=== PATIENT | female | born 1990 | race Caucasian/White ===

== ENCOUNTER 2017-09-07 13:15 | Emergency (ER) | payer BC ==
[2017-09-07] MEDS ORDERED: ONDANSETRON HCL INJ/PF 4 MG/2 ML SDV IV ONE (14:05)
[2017-09-07] MEDS ORDERED: NORMAL SALINE 1000 ML 1,000 ML IV ONE (14:05)
[2017-09-07] MEDS ORDERED: KETOROLAC TROMETHAMINE INJ/PF 30 MG/1 ML SDV IV ONE (14:05)
--- NOTE | 2017-09-07 14:06 | ER Document Report ---
ED Medical Screen (RME) - General Chief Complaint: Abdominal Pain Stated Complaint: ABDOMINAL PAIN Time Seen by Provider: 09/07/17 14:04 Notes: Patient has had 4 days of left lower quadrant abdominal pain. She states she had a CT scan done yesterday which was unremarkable. She has had no problems with urine or stool. No problems with appetite. She states that she had an ultrasound done in the office by her CHRONOMETER ADJUSTER yesterday that showed ovarian cyst. She states she was told by the OB provider that this could possibly be a torsion. She states that she comes back to the hospital because she keeps receiving pain medications at the clinic and she does not want any more pain medication but wants to know why she has the pain. TRAVEL OUTSIDE OF THE [place] IN LAST 30 DAYS: No - Related Data Allergies/Adverse Reactions: No Known Allergies Allergy (Verified 09/07/17 13:16) Home Medications: hydrocodone Past Medical History - Social History Chew tobacco use (# tins/day): No Frequency of alcohol use: None Drug Abuse: None Renal/ Medical History: Denies: Hx Peritoneal Dialysis Past Surgical History: Reports: Hx Oral Surgery - Immunizations Immunizations up to date: Yes Hx Diphtheria, Pertussis, Tetanus Vaccination: Yes - unknown Physical Exam - Vital signs Vitals: Temp Pulse Resp BP Pulse Ox 97.6 F 78 16 106/67 99 09/07/17 13:21 09/07/17 13:21 09/07/17 13:21 09/07/17 13:21 09/07/17 13:21 Course - Vital Signs Vital signs: Temp Pulse Resp BP Pulse Ox 97.6 F 78 16 106/67 99 09/07/17 13:21 09/07/17 13:21 09/07/17 13:21 09/07/17 13:21 09/07/17 13:21 Doctor's Discharge - Discharge Referrals: MYRNA SHORT NP [Primary Care Provider] - Follow up as needed
[2017-09-07 14:30] LABS: ABSOLUTE BASOPHILS # (AUTO) 0.1 10^3/uL (0.0-0.2); ABSOLUTE EOSINOPHILS # (AUTO) 0.1 10^3/uL (0.0-0.6); ABSOLUTE LYMPHOCYTES (AUTO) 1.9 10^3/uL (0.5-4.7); ABSOLUTE NEUT (AUTO) 7.8 10^3/uL (1.7-8.2); BASOPHILS % (AUTO) 0.5 % (0-2); HEMATOCRIT 41.2 % (36.0-47.0); HEMOGLOBIN 14.2 g/dL (12.0-15.5); LYMPHOCYTES % (AUTO) 17.6 % (13-45); MEAN CORPUSCULAR HEMOGLOBIN 29.4 pg (27.0-33.4); MEAN CORPUSCULAR HGB CONC 34.4 g/dL (32.0-36.0); MEAN CORPUSCULAR VOLUME 86 fl (80-97); PLATELET COUNT 203 10^3/uL (150-450); RED BLOOD COUNT 4.82 10^6/uL (3.72-5.28); RED CELL DISTRIBUTION WIDTH 13.1 % (11.5-14.0); SEGMENTED NEUTROPHILS % (AUTO) 71.9 % (42-78); TOTAL CELLS COUNTED % (AUTO) 100 %; WHITE BLOOD COUNT 10.9 10^3/uL (4.0-10.5)
[2017-09-07 14:50] LABS: ALANINE AMINOTRANSFERASE 34 U/L (9-52); ALKALINE PHOSPHATASE 61 U/L (38-126); ANION GAP 10 (5-19); ASPARTATE AMINO TRANSFERASE 22 U/L (14-36); BILIRUBIN,DIRECT 0.1 mg/dL (0.0-0.4); BILIRUBIN,TOTAL 0.2 mg/dL (0.2-1.3); BLOOD UREA NITROGEN 12 mg/dL (7-20); CALCIUM 9.5 mg/dL (8.4-10.2); CARBON DIOXIDE 30 mmol/L (22-30); CHLORIDE 101 mmol/L (98-107); GLUCOSE 85 mg/dL (75-110); POTASSIUM 4.5 mmol/L (3.6-5.0); SODIUM 140.7 mmol/L (137-145); TOTAL PROTEIN 6.7 g/dL (6.3-8.2)
[2017-09-07 14:59] LABS: APPEARANCE,URINE CLEAR; BILIRUBIN,URINE NEGATIVE (NEGATIVE); COLOR,URINE YELLOW; GLUCOSE, URINE NEGATIVE (NEGATIVE); KETONES,URINE NEGATIVE (NEGATIVE); LEUKOCYTE ESTERASE,URINE NEGATIVE (NEGATIVE); NITRITE,URINE NEGATIVE (NEGATIVE); PROTEIN,URINE NEGATIVE (NEGATIVE); URINE SPECIFIC GRAVITY 1.014; UROBILINOGEN,URINE NEGATIVE mg/dL (<2.0)
--- NOTE | 2017-09-07 16:07 | ER Document Report ---
ED GI/ - General Chief Complaint: Abdominal Pain Stated Complaint: ABDOMINAL PAIN Time Seen by Provider: 09/07/17 14:04 Mode of Arrival: Ambulatory Information source: Patient TRAVEL OUTSIDE OF THE [place] IN LAST 30 DAYS: No - HPI Patient complains to provider of: Abdominal pain Notes: 09/07/17 16:05 Patient is here with complaints of lower abdominal/pelvic pain. She has been experienced in his pain for about a week now. Seems to be fairly constant on the left but she has sharper intermittent worsening pain at times. Intermittent pain on the right. She has been seen by her primary care doctor and she reports that she had a normal pelvic exam, normal CT of the abdomen and pelvis and ultrasound that showed some ovarian cysts. She is concerned because she continues to have the pain in 1 week in the emergency department for further evaluation. She denies any associated nausea, vomiting, diarrhea. No dysuria or hematuria. No vaginal discharge. No rash. She denies any fever. No chest pain or shortness of breath. She has no other complaints at this time. - Related Data Allergies/Adverse Reactions: No Known Allergies Allergy (Verified 09/07/17 13:16) Home Medications: hydrocodone Past Medical History - Social History Smoking Status: Never Smoker Chew tobacco use (# tins/day): No Frequency of alcohol use: None Drug Abuse: None Family History: Reviewed & Not Pertinent Patient has suicidal ideation: No Patient has homicidal ideation: No Renal/ Medical History: Denies: Hx Peritoneal Dialysis Past Surgical History: Reports: Hx Oral Surgery - Immunizations Immunizations up to date: Yes Hx Diphtheria, Pertussis, Tetanus Vaccination: Yes - unknown Review of Systems - Review of Systems -: Yes All other systems reviewed and negative Physical Exam - Vital signs Vitals: Temp Pulse Resp BP Pulse Ox 97.6 F 78 16 106/67 99 09/07/17 13:21 09/07/17 13:21 09/07/17 13:21 09/07/17 13:21 09/07/17 13:21 - Notes Notes: GENERAL: alert, cooperative, nontoxic, no distress. HEAD: normocephalic, atraumatic EYES: conjunctiva pink without discharge, no external redness or swelling. EARS: no external swelling, no external redness NOSE: atraumatic, no external swelling MOUTH/THROAT: mucous membranes moist and pink, posterior pharynx without erythema, swelling, exudate. No trismus or drooling. NECK: soft, supple, full range of motion, no meningismus. CHEST: no distress, lungs clear and equal throughout. No wheezing, rales, rhonchi. CARDIAC: regular rate and rhythm, no murmur, normal capillary refill, normal pulses. No peripheral edema noted. ABDOMEN: Soft, tenderness to suprapubic area as well as the left lower quadrant/ pelvis. No rebound tenderness or guarding. No right lower quadrant tenderness or pain at McBurney's point. No mass. BACK: full range of motion, no CVA tenderness. EXTREMITIES: full range of motion of all extremities. No redness, no swelling. NEURO: alert and oriented x 3, no focal deficits, full range of motion of all extremities. PYSCH: appropriate mood, affect. Patient is cooperative. SKIN: pink, warm, dry, no rash. : Offered, but declined since she just had this done in her primary care office. Course - Re-evaluation Re-evalutation: 09/07/17 17:18 Patient is nontoxic appearing with stable vitals. Patient is here with complaints of left lower abdominal pain. Patient was seen by her primary care doctor and has had an ultrasound as well as a CT. She reports that CT was negative and at that ultrasound showed an ovarian cyst. She is concerned because she continues to have pain. On exam she has some suprapubic and left pelvic pain. Labs are unremarkable with normal white count and normal urine. Negative . Ultrasound shows a functional cyst on the left ovary with no signs of torsion. There is no sign of tubo-ovarian abscess. Patient just had a pelvic exam performed at her primary care doctor, I offered to perform another pelvic exam on her in the emergency department, she declined to have that done at this time. Patient is currently taking Ultram and Currie for pain. I will discharge home with some Voltaren. She is instructed to follow-up with her doctor as scheduled. She has an HSP scheduled for later this month. She is instructed to follow-up sooner if she develops worsening pain, high fever , persistent vomiting, or for any further concerns. The patient's emergency department workup and current diagnosis were explained to the patient and or family. Follow-up instructions were provided. Medications if prescribed were discussed. Instructions for when to return to the emergency department including specific worrisome symptoms were discussed with the patient and/or family. - Vital Signs Vital signs: Temp Pulse Resp BP Pulse Ox 97.6 F 78 16 106/67 99 09/07/17 13:21 09/07/17 13:21 09/07/17 13:21 09/07/17 13:21 09/07/17 13:21 - Laboratory Result Diagrams: 09/07/17 14:10 09/07/17 14:10 Laboratory results interpreted by me: 09/07/17 14:10 WBC 10.9 H - Diagnostic Test Radiology reviewed: Image reviewed, Reports reviewed - Ultrasound of the pelvis shows a left functional ovarian cyst. No other acute abnormality. Discharge - Discharge Clinical Impression: Pelvic pain Ovarian cyst Qualifiers: Laterality: left Qualified Code(s): N83.202 - Unspecified ovarian cyst, left side Condition: Stable Disposition: HOME, SELF-CARE Instructions: Abdominal Pain ([facility]), Pelvic Pain ([facility]), Ovarian Cyst ([facility]) Additional Instructions: Take medication as prescribed. You may take her Ultram or Currie as needed for pain as well. Follow-up for your HSP as scheduled. Follow-up with her primary care doctor at the next available appointment. Follow-up sooner for increasing pain, fever, persistent vomiting, severe bleeding, or for any further concerns. Prescriptions: Diclofenac Sodium [Voltaren 50 Mg Tablet.] 50 mg PO BID #20 tablet. Forms: Smoking Cessation Education Referrals: MYRNA SHORT NP [Primary Care Provider] - Follow up as needed
--- NOTE | 2017-09-07 16:45 | RADIOLOGY REPORT (SQ) ---
EXAM DESCRIPTION: U/S NON OB PEL W/DOPPLER COMPLETED DATE/TIME: 09/07/2017 4:34 pm REASON FOR STUDY: severe llq pain COMPARISON: None. TECHNIQUE: Dynamic and static grayscale images acquired of the pelvis via transabdominal approach an d recorded on PACS. Additional selected color Doppler and spectral images recorded. LIMITATIONS: None. FINDINGS: UTERUS: Contour normal. No mass. ENDOMETRIAL STRIPE: No focal or generalized thickening. No masses. CERVIX: No nabothian cysts. RIGHT OVARY: No abnormal masses. RIGHT OVARY DOPPLER: Normal arterial vascular flow without evidence for torsion. LEFT OVARY: 1.3 cm functional cysts. LEFT OVARY DOPPLER: Normal arterial vascular flow without evidence for torsion. FREE FLUID: None noted. OTHER: No other significant finding. MEASUREMENTS: UTERUS: 8 x 4 x 5.5 cm ENDOMETRIAL STRIPE: 1.1 cm RIGHT OVARY: 2.8 x 3.1 x 2 cm LEFT OVARY: 3.5 x 2.5 x 3 cm IMPRESSION: NORMAL PELVIC ULTRASOUND BY TRANSABDOMINAL TECHNIQUE. Functional left ovarian cyst. TECHNICAL DOCUMENTATION: JOB ID: [id number] [employer]- All Rights Reserved Reading location - IP/workstation name: [email or web address]
[2017-09-07 18:40] VITALS: BP 103/52
== END 2017-09-07 18:20 | disposition home or self-care (01) ==
LOC: ER 13:15
DX: N83.292 Other ovarian cyst, left side (principal); R10.2 Pelvic and perineal pain; R10.814 Left lower quadrant abdominal tenderness; Z87.891 Personal history of nicotine dependence
CPT/HCPCS: 99284; 96361; 96374; 96375; 36415; 85025; 81025; 80053; 81001; 76856; 93976; J1885; J2405; J7030

== ENCOUNTER → 2017-09-19 | Outpatient (CLI) | payer BC ==
--- NOTE | 2017-09-19 16:08 | RADIOLOGY REPORT (SQ) ---
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 PROCEDURE: PRE-PROCEDURE: Procedure was explained to the patient. She was told to expect cramping du ring the procedure, and possible spotting post procedure. PROCEDURE: The cervix was prepped in sterile fashion. Under direct visual inspection, several attemp ts were made to adequately visualize and cannulate the cervix. The speculum was expelled spontaneous ly several times. Patient was encouraged to relax, however procedure could not be completed without significant discomfort. TECHNIQUE: See above. FLUOROSCOPY TIME: None. No images saved to PACS. LIMITATIONS: See above. FINDINGS: None. IMPRESSION: Unsuccessful attempted hysterosalpingogram. Patient is a potential candidate for fibero ptic assisted hysterosalpingogram in the operating room with conscious sedation. COMMENT: Quality ID 145: Final reports for procedures using fluoroscopy that document radiation exp osure indices, or exposure time and number of fluorographic images (if radiation exposure indices are not available) TECHNICAL DOCUMENTATION: JOB ID: [id number] [employer]- All Rights Reserved Reading location - IP/workstation name: [email or web address]
--- NOTE | 2017-09-19 16:08 | RADIOLOGY REPORT (SQ) ---
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 PROCEDURE: PRE-PROCEDURE: Procedure was explained to the patient. She was told to expect cramping du ring the procedure, and possible spotting post procedure. PROCEDURE: The cervix was prepped in sterile fashion. Under direct visual inspection, several attemp ts were made to adequately visualize and cannulate the cervix. The speculum was expelled spontaneous ly several times. Patient was encouraged to relax, however procedure could not be completed without significant discomfort. TECHNIQUE: See above. FLUOROSCOPY TIME: None. No images saved to PACS. LIMITATIONS: See above. FINDINGS: None. IMPRESSION: Unsuccessful attempted hysterosalpingogram. Patient is a potential candidate for fibero ptic assisted hysterosalpingogram in the operating room with conscious sedation. COMMENT: Quality ID 145: Final reports for procedures using fluoroscopy that document radiation exp osure indices, or exposure time and number of fluorographic images (if radiation exposure indices are not available) TECHNICAL DOCUMENTATION: JOB ID: [id number] [employer]- All Rights Reserved Reading location - IP/workstation name: [email or web address]
== END ==
LOC: RAD 14:37
PROVIDERS: ATTEND Nurse Practitioner Primary Care
DX: N97.9 Female infertility, unspecified (principal); N92.0 Excessive and frequent menstruation with regular cycle; N85.00 Endometrial hyperplasia, unspecified
CPT/HCPCS: 58340; 74740

== ENCOUNTER 2017-10-12 05:39 | Day surgery (SDC) | payer BC ==
[2017-10-06 11:06] LABS: APPEARANCE,URINE CLEAR; BILIRUBIN,URINE NEGATIVE (NEGATIVE); COLOR,URINE STRAW; GLUCOSE, URINE NEGATIVE (NEGATIVE); KETONES,URINE NEGATIVE (NEGATIVE); LEUKOCYTE ESTERASE,URINE SMALL (NEGATIVE); NITRITE,URINE NEGATIVE (NEGATIVE); PROTEIN,URINE NEGATIVE (NEGATIVE); URINE SPECIFIC GRAVITY 1.009; UROBILINOGEN,URINE NEGATIVE mg/dL (<2.0)
[2017-10-06 11:13] LABS: HEMATOCRIT 41.2 % (36.0-47.0); HEMOGLOBIN 14.3 g/dL (12.0-15.5); MEAN CORPUSCULAR HGB CONC 34.7 g/dL (32.0-36.0); MEAN CORPUSCULAR VOLUME 86 fl (80-97); PLATELET COUNT 157 10^3/uL (150-450); RED BLOOD COUNT 4.77 10^6/uL (3.72-5.28); WHITE BLOOD COUNT 8.9 10^3/uL (4.0-10.5)
[2017-10-06 11:58] LABS: ALANINE AMINOTRANSFERASE 65 U/L (9-52); ALBUMIN 4.3 g/dL (3.5-5.0); ALKALINE PHOSPHATASE 64 U/L (38-126); ANION GAP 14 (5-19); ASPARTATE AMINO TRANSFERASE 37 U/L (14-36); BILIRUBIN,DIRECT 0.3 mg/dL (0.0-0.4); BILIRUBIN,TOTAL 0.5 mg/dL (0.2-1.3); BLOOD UREA NITROGEN 13 mg/dL (7-20); CALCIUM 9.9 mg/dL (8.4-10.2); CARBON DIOXIDE 25 mmol/L (22-30); CHLORIDE 103 mmol/L (98-107); GLUCOSE 81 mg/dL (75-110); TOTAL PROTEIN 7.3 g/dL (6.3-8.2)
--- NOTE | 2017-10-06 13:34 | EKG REPORT ---
SEVERITY:- NORMAL ECG - SINUS RHYTHM : Confirmed by: Manoj Tompkins MD 06-Oct-2017 13:34:11
[~2017-10-12 05:39] MED LIST: CEFAZOLIN 1 GM/D5W RTU 1 GM/50 ML RTUPB IV PRN; LACTATED RINGERS 1000 ML IV PRN; LIDOCAINE 0.5% INJ-PF (5 MG/ML) 50 ML SDV SUBCUT PRN
[2017-10-12] MEDS ORDERED: METHYLENE BLUE 50 MG/10 ML AMPULE ONE (07:09)
[2017-10-12] MEDS ORDERED: BUPIVACAINE HCL 0.25 % INJ/PF (2.5 MG/1 ML) 30 ML VIAL ONE (07:09)
[2017-10-12] MEDS ORDERED: DEXAMETHASONE SOD PHOSPHATE INJ 4 MG/1 ML VIAL ONE (07:10)
[2017-10-12] MEDS ORDERED: FENTANYL CITRATE INJ/PF 100 MCG/2 ML AMPUL ONE (07:10)
[2017-10-12] MEDS ORDERED: HYDROMORPHONE HCL INJ/PF 2 MG/ML AMPULE ONE (07:10)
[2017-10-12] MEDS ORDERED: ONDANSETRON HCL INJ/PF 4 MG/2 ML SDV ONE (07:10)
[2017-10-12] MEDS ORDERED: MIDAZOLAM 2 MG/2 ML INJ ONE (07:10)
[2017-10-12] MEDS ORDERED: PROPOFOL INJ 200 MG/20 ML VIAL IV ONE (07:11)
[2017-10-12] MEDS ORDERED: FENTANYL CITRATE INJ/PF 100 MCG/2 ML AMPUL IV PRN ×3 (07:52)
[2017-10-12] MEDS ORDERED: PROMETHAZINE HCL INJ 25 MG/1 ML VIAL IV PRN ×2 (07:52→08:56)
[2017-10-12] MEDS ORDERED: MEPERIDINE HCL/PF INJ 25 MG/1 ML DISP.SYRIN IV PRN (07:52)
[2017-10-12] MEDS ORDERED: DIPHENHYDRAMINE HCL 50 MG/ML VIAL IV PRN (07:52)
--- NOTE | 2017-10-12 08:44 | OPERATIVE REPORT E ---
Operative Report NAME: DENNYS DIANE : 1990 AGE: 27Y DATE OF SURGERY: 10/12/2017 ROOM: PREOPERATIVE DIAGNOSES: 1. Infertility. 2. Pelvic pain. POSTOPERATIVE DIAGNOSIS: Normal female anatomy. OPERATION: D and C, laparoscopy with chromotubation. SURGEON: DAPHNEY SHORT M.D. ANESTHESIA: General and 0.25% Marcaine. ESTIMATED BLOOD LOSS: Negligible. PERTINENT HISTORY AND OPERATIVE FINDINGS: This is a 27-year-old female who has been having trouble getting . They tried to do a hysterosalpingogram over an x-ray and were unsuccessful and suggested that we proceed with laparoscopy. She has also had intermittent issues with ongoing pelvic pain and dysmenorrhea. At the time of surgery the vulva and vagina appeared to be normal. The cervix appeared to be nulliparous and normal. The uterus was slightly increased in size, maybe a little bit boggy. Both tubes and ovaries appeared to be normal. The cul-de-sac was inspected and there was no evidence of endometriosis, no evidence of any scar tissue. The chromotubation proceeded normally. Both tubes were open and egressed the dye. OPERATIVE PROCEDURE: Patient was brought into the OR and placed on the table in a supine position, inducted under general anesthesia. Following this she was repositioned in a dorsal lithotomy position, prepped and draped in a sterile fashion. The bladder was emptied of about 50 mL of clear yellow urine. A pelvic under anesthesia was done. Having accomplished this a bivalve speculum was inserted. The cervix was grasped on its anterior lip with a single-tooth tenaculum, was dilated with Hegar dilators and sounded to 8 cm. Having accomplished this a HUMI endocervical endometrial apparatus was gently inserted through the cervix and carried up to the fundus. She had already had a curettage that revealed a little bit of tissue. The balloon was inflated with 6 mL of air and the other equipment was removed. Attention was turned toward the abdominal wall. A Veress needle was introduced umbilically and carried through the various layers until the abdominal cavity was entered. On entering the abdominal cavity approximately 3 L of CO2 were injected. Opening pressure was 7. We took it up to a pressure of 15. As stated she got about 3 mL of CO2. The Veress needle was removed. A small incision was made infraumbilically. Through this incision a trocar and sleeve were inserted. The trocar was removed and through the sleeve a laparoscope was inserted. A second incision was made suprapubically. Through this incision a trocar and sleeve were inserted, the trocar was removed. Through the sleeve a probe was inserted. Contents of the pelvis and abdomen were visualized. Then approximately 10 mL of the dye was injected through the HUMI applicator. Both tubes were open. The dye easily egressed through the tube, came out the fimbria, and collected in the cul-de-sac. This terminated the procedure. The lower sleeve was removed. There was no evidence of any ongoing bleeding. The CO2 was allowed to escape. The upper sleeve was removed. Patient had 4 mL of 0.25% Marcaine injected into each of the incisions. The fascia was closed with interrupted 0 Vicryl. Skin edges were brought together in the suprapubic incision with subcuticular 4-0 Prolene. The suprapubic incision was closed with interrupted 4-0 Prolene. Attention was turned back down towards the pelvis. The HUMI applicator was deflated and removed. The bivalve speculum was inserted. There was no evidence of ongoing active bleeding. This terminated the procedure. Patient had the anesthesia discontinued. She was placed back in the supine position and transferred to the recovery room in satisfactory condition. Negligible blood loss. DICTATING PHYSICIAN: DAPHNEY SHORT M.D. [id number] PHY#: [id number] ID: [id number] JOB#: [id number] ACCT: [id number] cc:DAPHNEY SHORT M.D. >
[2017-10-12] MEDS: FENTANYL CITRATE INJ/PF 100 MCG/2 ML AMPUL ONE ×2 (08:46→08:51)
[2017-10-12] MEDS ORDERED: OXYCODONE-ACETAMINOPHEN 5-325 MG TABLET PO PRN ×2 (08:55)
[2017-10-12] MEDS ORDERED: PROMETHAZINE HCL INJ 25 MG/1 ML VIAL ONE (09:11)
[2017-10-12 11:52] VITALS: BP 104/65
== END 2017-10-12 11:20 | disposition home or self-care (01) ==
LOC: OROUT 05:39
PROVIDERS: ATTEND Obstetrics & Gynecology
DX: N97.9 Female infertility, unspecified (principal); R10.2 Pelvic and perineal pain; N94.6 Dysmenorrhea, unspecified; Z88.5 Allergy status to narcotic agent; Z87.891 Personal history of nicotine dependence; E66.9 Obesity, unspecified; Z68.41 Body mass index [BMI] 40.0-44.9, adult
CPT/HCPCS: 93005; 36415; 85027; 81025; 80053; 81001; 88305 ×2; 93010; 49320; 58350; 58120; J2250; J0690; J1100; J3010; J1170; J2550; J2405; J2704; Q9968; 840